=== PATIENT | male | born 1985 | race Caucasian/White ===

== ENCOUNTER → 2024-03-31 10:01 | Outpatient (BNVA) | payer OTHER, SELFPAY | PROVIDERS: PCP Internal Medicine; Visit Provider Physician Assistant Medical | DX: M23.8X2 Other internal derangements of left knee (principal); R60.1 Generalized edema | CPT/HCPCS: 73564; 99203 ==

== ENCOUNTER → 2024-04-10 11:28 | Outpatient (BNVA) | payer OTHER, SELFPAY | PROVIDERS: PCP Internal Medicine; Visit Provider Physician Assistant Medical | DX: M23.92 Unspecified internal derangement of left knee (principal) | CPT/HCPCS: 99213 ==

== ENCOUNTER 2024-04-18 08:46 | Outpatient (REF) | payer OTHER, SELFPAY ==
--- NOTE | ~2024-04-18 | XR_ITS ---
EXAMINATION: XR SKULL, PRE-MRI SCREENING CLINICAL INFORMATION: Pre-MRI screening. BBs. COMPARISON: None. TECHNIQUE: AP and lateral views of the skull were obtained. FINDINGS: Radiopaque metallic densities are seen overlying the right skull apex measuring up to 0.4 and 0.4 cm. No additional radiopaque foreign body. No acute fracture. No concerning lytic or blastic osseous lesion. XR/XR pre mri screening IMPRESSION: Radiopaque metallic densities overlying the right skull apex measuring up to 0.4 cm. Electronically signed by: Gilberto Pastor MD 04/18/2024 10:34 AM EDT
== END 2024-04-18 08:47 | disposition home or self-care (01) ==
LOC: HO.XRAY 08:46
PROVIDERS: PCP Family Medicine; Visit Provider Internal Medicine
DX: Z13.89 Encounter for screening for other disorder (principal)

== ENCOUNTER 2024-04-21 18:57 | Outpatient (REF) | payer OTHER, SELFPAY ==
--- NOTE | ~2024-04-21 | MR_ITS ---
EXAMINATION: MR KNEE WITHOUT CONTRAST, LEFT CLINICAL INFORMATION: Left knee pain and swelling following an injury 3 weeks ago. Reduced range of motion. Internal derangement. COMPARISON: Left knee radiographs dated 03/31/2024. TECHNIQUE: MRI of the knee without contrast was performed using routine sequences on a high-field scanner. FINDINGS: MENISCI: Medial Meniscus: Intact Lateral Meniscus: Oblique inner margin and tibial articular surface tear of the posterior horn and root with extension into the intrasubstance of the meniscal body which is medially extruded. Mild adjacent soft tissue edema. LIGAMENTS: Cruciate: Intact. Collateral: Edema adjacent to the medial collateral ligament which may be related to the meniscal tear or indicate a grade 1 sprain. Intact fibular collateral ligament. EXTENSOR MECHANISM: Intact quadriceps tendon. Minimal proximal patellar tendinosis. Normal patellofemoral alignment. ARTICULAR CARTILAGE/BONE: Patellofemoral Compartment: Medial patellar facet full-thickness articular cartilage fissuring. Medial Compartment: Marrow edema within the medial aspect of the medial femoral condyle and medial tibial plateau consistent with osseous contusions. No fracture. Intact articular cartilage. Lateral Compartment: Intact articular cartilage. JOINT FLUID AND BURSAE: Small joint effusion. MR/MR knee LT wo con IMPRESSION: 1. Oblique inner margin and tibial articular surface tear of the lateral meniscus posterior horn and root with extension into the intrasubstance of the meniscal body which is medially extruded. 2. Edema adjacent to the medial collateral ligament which may be related to the meniscal tear or indicate a grade 1 sprain. 3. Osseous contusions at the medial aspect of the medial femoral condyle and medial tibial plateau without an associated fracture. 4. Minimal proximal patellar tendinosis. 5. Minimal patellofemoral arthrosis. Small joint effusion. Electronically signed by: Gilberto Pastor MD 05/07/2024 11:38 AM [facility] [place]
== END 2024-04-21 18:58 | disposition home or self-care (01) ==
LOC: HO.MRI 18:57
PROVIDERS: PCP Family Medicine; Visit Provider Internal Medicine
DX: M23.92 Unspecified internal derangement of left knee (principal)
CPT/HCPCS: 73721

== ENCOUNTER → 2024-04-24 10:44 | Outpatient (BNVA) | payer OTHER, SELFPAY | PROVIDERS: PCP Family Medicine; Visit Provider Physician Assistant Medical | DX: M23.8X2 Other internal derangements of left knee (principal) | CPT/HCPCS: 99213 ==

== ENCOUNTER → 2024-05-07 09:59 | Outpatient (BNVA) | payer OTHER, SELFPAY | PROVIDERS: PCP Family Medicine; Visit Provider Physician Assistant Medical | DX: M23.8X2 Other internal derangements of left knee (principal) | CPT/HCPCS: 99213 ==

== ENCOUNTER 2025-03-24 11:42 | Emergency (ER) | payer BC, SELFPAY ==
--- NOTE | ~2025-03-24 | XR_ITS ---
EXAMINATION: XR FINGER, LEFT CLINICAL INFORMATION: laceration, 3rd digit, r/o avulsion COMPARISON: None available. TECHNIQUE: PA hand and oblique and lateral views of the left third digit. FINDINGS: Small defect in the soft tissues is noted to the ulnar side of the third digit at the level of the DIP joint. There is also increased since soft tissues with swelling. No fracture is identified. No chronic degenerative changes are seen. XR/XR finger LT min 2V IMPRESSION: Soft tissue injury involving distal third digit. No acute bony abnormality. Electronically signed by: Valdemar Hughes MD 03/24/2025 12:30 PM EDT
[2025-03-24 11:45] VITALS: BP 165/101; PULSE 85; RESP 18; TEMP 36.7; O2SAT 97; BMI 34.3
--- NOTE | 2025-03-24 11:45 | ED.SKABFB ---
HPI - Skin/Abscess/Foreign Bdy General Chief complaint: Wound/Laceration Stated complaint: Finger lac Time Seen by Provider: 03/24/25 12:18 Source: patient, RN notes reviewed and old records reviewed Mode of arrival: ambulatory Limitations: no limitations History of Present Illness ED Provider: Meena HPI narrative: Patient is a 39-year-old right-hand dominant male presenting to the emergency department with complaint of laceration to left middle finger. States he got his finger caught in the bike wheel prior to arrival. Tdap up-to-date, last received in 2019. Denies any other injury. complaint: laceration Related Data Allergies Allergy/AdvReac Type Severity Reaction Status Date / Time Penicillins (PCN) Allergy Anaphylaxis Verified 03/24/25 11:50 Review of Systems Review of Systems: as per hpi Yes all other systems are reviewed and are negative Constitutional: Constitutional: Reports as per HPI [facility] Social History Social History Advance Directives: No Advance Directives Information Provided: Yes Physical Exam Vital Signs: Vital Signs: Last Vital Signs Temp 98.2 F 03/24/25 12:00 Pulse 77 03/24/25 12:00 Resp 16 03/24/25 12:00 BP 140/93 H 03/24/25 12:00 Pulse Ox 99 03/24/25 12:00 O2 Del Method Room Air 03/24/25 12:00 BMI result Body Mass Index 34.3 Vital signs have been reviewed and appear to be correct. Blood pressure normal. Heart rate normal. Respiratory rate normal. Temperature normal. Oxygen saturation normal. Const: General: cooperative, healthy appearing and no acute distress Orientation/consciousness: oriented to person, oriented to place, oriented to time and patient oriented x3 Limitations: no limitations HEENT: Head: Yes normocephalic and Yes atraumatic Ears: external ears normal General nose exam: Normal external nose present Face and sinus: Yes face symmetric Mouth: oropharynx normal and moist mucous membranes Throat: Yes uvula midline Eyes: Pupils: Equal, round and reactive pupils present Neck: Neck: Yes normal visual inspection and Yes supple Resp: Effort & Inspection: normal respiratory effort and able to speak in complete sentences Auscultation: clear to auscultation bilaterally Cardio: Rate: regular rate Rhythm: regular rhythm Heart sounds: S1 normal heart sound present and S2 normal heart sound present GI: Palpation (GI): Soft to palpation and nontender Auscultation: normoactive bowel sounds : General: Yes no CVA tenderness Back/Spine/Pelvis: Back: no CVA tenderness Skin: General skin exam: elasticity normal and turgor normal Neuro: General: oriented to person, oriented to place, oriented to time, patient oriented x3, moves all extremities, no focal motor deficits and CN's II-XI intact bilaterally Cranial nerves: Yes Equal, round and reactive pupils present Cognition (Neuro): normal cognition Extrem: General: Yes full ROM, Yes no pedal edema and Yes no calf tenderness Right upper extremity: Extremity exam: right hand Details: neuromotor exam normal, neurosensory exam normal, normal ROM of fingers and laceration 3rd digit dorsal aspect distal Details: flap (with small laceration to lateral nail not requiring sutures), with motor nerve function intact and with sensation intact Hand/finger images:  1. avulsion/flap to ulnar side of distal left 3rd finger with small lac to lateral nail Psych: Mental Status: mental status grossly normal Affect: normal affect Thought process: Normal thought process present Course Course Course Narrative: This is an RME: Additional HPI, ROS, PE not included below will be deferred to primary provider. RME assessment and note performed by: Florencia Martinez PA-C This is a [id number]-male who presents to the ER with complaints of finger laceration. Patient reports that he accidentally lacerated his left middle finger on a bike wheel. Needs stitches. Last tetanus was 6 years ago. Patient with tenderness palpation along the lateral aspect with 2.5 cm irregularly shaped laceration noted. Plan: X-rays Medications Administered Discontinued Medications Generic Name Dose Route Start Last Admin Trade Name Freq PRN Reason Stop Dose Admin Diphtheria/Tetanus/Acell Pertussis 0.5 ml 03/24/25 12:20 03/24/25 12:32 Diphth,Pertus(Acell),Tet Adult 0.5 Ml Syringe IM 03/24/25 12:21 Not Given .ONCE ONE Medical Decision Making Medical Decision Making [facility] Narrative: Patient is a 39-year-old right-hand dominant male presenting to the emergency department with complaint of laceration to left middle finger. On exam patient is awake, A+Ox3, VS WNL, afebrile, normal neurological exam without focal deficits, physical exam findings as above. Given reported symptoms and physical exam findings, initial differential includes but is not limited to laceration/avulsion, nail laceration, open fracture. X-ray left 3rd finger notable for no evidence of fracture or foreign body. My interpretation is in agreement with the radiologist's interpretation. Laceration repaired as per procedure note. Wound care instructions and return precautions discussed at bedside. Patient verbalized understanding of and agreement with plan. Differential Diagnosis Differential Diagnoses: The differential diagnosis associated with the presentation includes as per mdm Admission/Observation Consideration of admission/observation: Escalation of care including admission/observation considered Patient would have been admitted to the hospital and transferred to appropriate facility had their clinical presentation warranted hospital admission. Independent Interpretation I performed an independent interpretation of an: Plain X-Ray Interpretation: no evidence of fracture or foreign body x-ray left 3rd finger Radiology Impression Discussion of test interpretation with radiology: I have reviewed the radiologist's reading. Radiologist Impression: XR/XR finger LT min 2V IMPRESSION: Soft tissue injury involving distal third digit. No acute bony abnormality. External Record Review External record reviewed: Inpatient record, Office record and Outpatient record Procedures Laceration Laceration 1: Site: hand Side (If applicable): left Size (cm): 2 Description: flap Depth: simple, single layer Local Anesthetic: lidocaine 1% Amount of anesthesia used (mL): 2 Pre-repair: wound explored, irrigated extensively and deep structures intact Skin layer closed with: other (prolene) Size (cm): 5-0 Number of sutures: 7 Technique: simple, interrupted Discharge Plan Discharge Clinical Impression: Laceration of finger of left hand Qualifiers: Encounter type: initial encounter Finger: middle finger Damage to nail status: with damage Foreign body presence: without foreign body Qualified Code(s): S61.313A - Laceration without foreign body of left middle finger with damage to nail, initial encounter Patient Disposition: Home, Self-Care Instructions: Finger Laceration (ED), Stitches Removal (ED), Care For Your Stitches (DC) Additional Instructions: You have been evaluated in the emergency department today for a laceration to your finger. Your laceration was repaired in the emergency department with 7 sutures. Please keep the area surrounding the laceration clean and dry and keep dressing in place for the next 24 hours. After that please change the dressing and assess the wound daily. Do not submerge the wound in water until the stitches has been removed and the wound has fully healed (no washing dishes, swimming, hot tubs, etc. and ESPECIALLY no outdoor water). Keep the area out of direct sunlight for the next 6 months to help prevent scarring. You should have the sutures removed in 7-10 days. If you develop fever, redness, swelling at the site of your laceration, or thick yellow drainage please come back to the ER for a wound check. Stand Alone Forms: Work/School Release Print Language: Macanese
[2025-03-24 12:00] VITALS: BP 140/93; PULSE 77; RESP 16; TEMP 36.8; O2SAT 99
--- OUTSIDE RECORDS SUMMARY | 2025-03-24 13:44 | XMS_ITS | Clinical Summary ---
Author Organization [facility] Address [address] [place] [phone] Phone Care Team Providers Care Social Research Assistant Name Role Phone Bruce Navarrete DO Primary Care Provider [phone] Bruce Navarrete DO Unavailable Bruce Navarrete DO Unavailable Allergies Active Allergy Reactions Criticality Noted Date Comments Penicillin G Potassium Anaphylaxis High 09/28/2016 Medications triamcinolone (NASACORT AQ) 55 mcg/actuation nasal inhaler 1 puff in each nostril Active levocetirizine (XYZAL) 5 MG tabletIndications: Daily as needed. Take 5 mg by mouth as needed for allergies. Indications: Daily as needed. Active inhaler spacing device (AEROCHAMBER,BREAT HERITE) SpcrIndications:Vi ral URI with cough Inhale 1 each into the lungs daily. 1 each 0 Active budesonide (PULMICORT FLEXHALER) 90 mcg/actuation inhalerIndications :Reactive airway disease without complication, unspecified asthma severity, unspecified whether persistent Inhale 2 puffs into the lungs 2 (two) times a day. 1 Inhaler 5 0 Active methylphenidate HCl 27 MG CR tablet Take 1 tablet (27 mg total) by mouth every morning. 30 tablet 2 Active methylphenidate HCl 27 MG CR tablet Take 1 tablet (27 mg total) by mouth every morning. 30 tablet 2 Active sildenafiL (VIAGRA) 100 mg tabletIndications: Corporo-venous occlusive erectile dysfunction Take 1 tablet (100 mg total) by mouth daily as needed. 10 tablet 5 2 Active doxycycline monohydrate (MONODOX) 100 MG capsule Take 1 capsule (100 mg total) by mouth daily. For 14 days 14 capsule 3 Active doxycycline hyclate 20 MG tablet Take 40 mg by mouth daily. 4 Active azithromycin (ZITHROMAX) 250 MG tabletIndications: Chronic maxillary sinusitis Take 2 tablets on day 1 followed by 1 tablet daily for 4 days 6 tablet 4 Active albuterol 90 mcg/actuation inhalerIndications :Viral URI with cough Use 2 puff 3 times per day for 3-5 days and then 2 times per day as needed for tightness and cough 18 g 2 4 Active meclizine (ANTIVERT) 12.5 mg tablet Take 1 tablet (12.5 mg total) by mouth 3 (three) times a day as needed for dizziness or nausea. 30 tablet 5 Active ondansetron (ZOFRAN-ODT) 4 MG disintegrating tablet Take 1 tablet (4 mg total) by mouth every 8 (eight) hours as needed for nausea. 15 tablet 5 Active methylphenidate HCl 27 MG ER tabletIndications: Lack of concentration Take 1 tablet (27 mg total) by mouth every morning. 30 tablet 5 Active doxycycline hyclate 20 MG tabletIndications: Other acne TAKE 1 TABLET BY MOUTH TWICE A DAY 180 tablet 1 5 Active Active Problems Problem Noted Date Diagnosed Date Lump in neck 02/14/2024 Assessment & Plan (02/14/2024 11:02 AM EDT): Grabiel presents with a lump-right side of neck. This is painful when he turns his neck to the left and swallows. This may be a reactive lymph node but I will further investigate with blood work-he is due for routine labs from last physical and a CBC was included. I will update him with the result. I also ordered an ultrasound of this area to further investigate this. Follow-up in a month. I placed a referral to ENT today just so that there is not a delay if this is needed down the road. I informed him to call if his symptoms change or if he gets a fever or if there are any other issues or concerns. He understands and agrees. Chronic maxillary sinusitis 10/09/2023 Assessment & Plan (10/09/2023 1:49 PM EDT): Grabiel presents for an ongoing sinusitis-I change his antibiotics over to Z-Abdoul as he notes the doxycycline was not helping him. He has 1 day left and I advised him to stop this and change of the Z-Abdoul. I informed him to call if there are any other issues or concerns. He understands and agrees. Chronic cough 10/09/2023 Assessment & Plan (10/09/2023 1:50 PM EDT): Grabiel has a chronic cough-I ordered an x-ray of his chest for further evaluation. I will update him with results. He is asked for referral to pulmonology-I did this. He is a law office assistant. I informed him to call if there are any other issues or concerns. Elevated cholesterol 09/29/2022 Assessment & Plan (09/29/2022 2:41 PM EDT): Grabiel presents for a follow-up regarding his blood work. His cholesterol is elevated and I recommended atorvastatin 10 mg once a day-side effects discussed. He notes that he would like to try to improve his diet and exercise and repeat the labs in 3 months and I will update him with results. If they remain elevated then I will start him on atorvastatin 10 mg once a day. He understands and agrees with this plan. Other acne 09/21/2022 Assessment & Plan (09/21/2022 12:12 PM EDT): Grabiel presents with ongoing facial acne and I wrote a prescription for doxycycline to be taken once a day for 2 weeks and to stop-guidance given regarding sun sensitivity to the skin with this medication. I also wrote a prescription for clindamycin lotion to be applied twice a day to the facial region and to call if this does not improve or if things get worse. He notes that he would not like to see dermatology again as they have not been too helpful for him in the past. He will call if there are any other issues or concerns. He understands and agrees. Mixed hyperlipidemia 09/21/2022 Assessment & Plan (10/09/2023 1:50 PM EDT): Grabiel is due for a cholesterol recheck-I ordered this today and he will get this done-fasting for 10 hours prior to. Corporo-venous occlusive erectile dysfunction Assessment & Plan (09/20/2021 11:58 AM EDT): Grabiel has ED and I started him on Viagra - to be taken as directed. Side effects discussed. He will call if there are any other issues. Other headache syndrome 09/15/2020 Assessment & Plan (09/15/2020 11:55 AM EDT): Grabiel has headaches, this is likely stress related. I gave him guidance regarding healthy stress outlets. He declined a medication offered today- Fioricet. He will call if there is any other issues. He understand and agrees. Rash and other nonspecific skin eruption 021 Assessment & Plan (09/15/2020 11:58 AM EDT): Grabiel has a rash on the left side of his face- I started him on the above cream. He will call the derm referral that I sent today if this does not help in 2 weeks. Lack of concentration 07/05/2020 Assessment & Plan (07/05/2020 10:17 AM EST): A virtual visit was used during the COVID-[address] of an in-person visit. This real-time, interactive virtual clinical encounter was conducted using videoconferencing technology from clinic or home office. The patient participated in the visit from home/temporary residence or other location as specified below. Consent for virtual care, including informing the patient that insurance will be billed, and that in-person care is available in case of emergencies or as needed otherwise, was discussed at the time of scheduling. Pt participated in visit from home. Grabiel has been having issues with concentration. He was on Ritalin as a child and believes that he was taken off since around age 14 or so. He is currently having issues with concentration and focus at home. He would like to try something for this. I did advise him to start on high dose of omega-3 to see if this helps and I also put a referral into Dr. Stone for consult regarding ADHD medication. Once stabilized on medication I will manage him as outpatient. We did discuss a controlled substance agreement form in the future and the need for visits every 3 months if he is to be on a controlled medication and he was agreeable to all this. He will call if there is any other issues. He understands and agrees. Vasectomy evaluation 02/27/2020 Assessment & Plan (02/27/2020 9:38 AM EDT): A virtual visit was used during the COVID-[address] of an in-person visit. This real-time, interactive virtual clinical encounter was conducted using videoconferencing technology from clinic or home office. The patient participated in the visit from home/temporary residence or other location as specified below. Consent for virtual care, including informing the patient that insurance will be billed, and that in-person care is available in case of emergencies or as needed otherwise, was discussed at the time of scheduling. Pt participated in visit from home. Brain is asking for vasectomy referral. I referred him to urology today. He and his are both in agreement that 2 children are enough for them. He will call for this referral and I gave him the phone number to make the appointment. I also asked him to call my office later on to schedule a physical in the next few months. He will call if there is any other issues. He understands and agrees. Infection of left eye 11/19/2018 Assessment & Plan (11/19/2018 8:36 AM EDT): Grabiel has an infection of his left lower eye lid-not a sty. I advised him to start on the above eye drops as directed. He will also make an appt with his eye doctor for later this week and go if this is not getting better. I advised that he also continue with the warm compresses. He will call me if there is any other issues. He understands and agrees. Routine medical exam 09/07/2017 Assessment & Plan (10/09/2023 1:51 PM EDT): Grabiel Johnson is a 37 y.o. year old male presenting for his annual physical exam. I reviewed the adult health update-electronic questionnaire. he will go for his above lab work and I will update him with the results. I advised him to continue to improve his diet and exercise regimen. he will follow up in a year for their annual physical exam. he understands and agrees. Assessment & Plan (09/21/2022 12:03 PM EDT): Grabiel Johnson is a 36 y.o. year old male presenting for his annual physical exam. I reviewed the adult health update-electronic questionnaire. he will go for his above lab work and I will update him with the results. he has a healthy diet and exercise regimen. he will follow up in a year for their annual physical exam. he understands and agrees. Assessment & Plan (09/20/2021 11:48 AM EDT): Grabiel Johnson is a 35 y.o. year old male presenting for his annual physical exam. I reviewed the adult health update questionnaire. he will go for his above lab work and I will update him with the results. he has a healthy diet and exercise regimen. he will follow up in a year for their annual physical exam. he understand and agrees. Assessment & Plan (09/15/2020 12:09 PM EDT): Grabiel Johnson is a 34 y.o. year old male presenting for his annual physical exam. I reviewed the adult health update form today. he will go for his above lab work and I will update him with the results. I advised him to improve his diet and exercise regimen. he will follow up in a year for their annual physical exam. he understand and agrees. Assessment & Plan (09/07/2017 12:43 PM EDT): Grabiel Johnson is a 31 y.o. year old male presenting for his annual physical exam. I reviewed the supplied law office assistant forms today in the office. I reviewed the adult health update form today. he will go for his above lab work and I will update him with the results. he has a healthy diet and exercise regimen. he will follow up in a year for their annual physical exam. he understand and agrees. Anxiety 09/07/2017 Assessment & Plan (09/20/2021 11:55 AM EDT): He is looking for coping mechanisms. Guidance given to start on exercise to help with this. Palpitations 09/07/2017 Assessment & Plan (09/07/2017 12:41 PM EDT): Grabiel has palpitations still but he was seen by his floor plan adjuster and he was diagnosed with PVC's, but not concerning at this time. He will call if these get worse though. Grabiel had an EKG today in the office and this was WNL and stable. Seasonal allergies 09/07/2017 Assessment & Plan (09/15/2020 12:08 PM EDT): I referred Grabiel to allergy testing. He was appreciative of this. Assessment & Plan (09/07/2017 11:35 AM EDT): Grabiel has seasonal allergies and this is getting worse. He is taking his medication as directed and he was also referred to an guidance and control system engineer today. He was appreciative of this. Class 1 obesity due to exces s calories without serious comorbidity with body mass index (BMI) of 33.0 to 33.9 in adult 09/07/2017 Assessment & Plan (10/09/2023 1:50 PM EDT): BMI of 33-guidance given regarding improving lifestyle-he is currently improving his diet and getting more exercise more recently-I congratulated him on this. Assessment & Plan (09/20/2021 11:49 AM EDT): Grabiel has a BMI of 34. I gave him guidance regarding improving diet and exercise regimen. Assessment & Plan (09/15/2020 11:52 AM EDT): Grabiel is overweight and I advised him to improve his diet and exercise regimen. Assessment & Plan (09/07/2017 12:41 PM EDT): Grabiel is overweight and he was advised to improve his diet and exercise regimen. He understands and agrees to this. Resolved Problems Problem Noted Date Diagnosed Date Resolved Date Reactive airway disease 09/07/201708/23 Encounters Date Type Department Care Team Description 01/23/2025 Refill [facility] [address] [place] [address] Bruce Navarrete, DO Medication Refill from Last 3 Months Immunizations Immunization Administration Dates Next Due COVID-19 (Pre-04/16) Pfizer Vaccine, mRNA, PF ,06/24/2020 INFLUENZA, SPLIT VIRUS, TRIVALENT PF 03/29/2015 Influenza Quadrivalent Preservative Free IM 04/25 Influenza Recombinant [place] valent Preservative Free IM 07/05/2019 Tdap 01/19/2020,09/21/2015 Family History Medical History Relation Comments Atrial fibrillation Father CV disease Father Hypertension Mother CV disease Paternal Grandmother Relation Status Comments Father Alive Mother Alive Paternal Grandmother Social History Tobacco Use Types Packs/Day Years Used Date Smoking Tobacco: Never Smokeless Tobacco: Former Tobacco Cessation:Counseling Given: Not Answered Alcohol Use Standard Drinks/Week Comments Yes 0 (1 standard drink = 0.6 oz pur e alcohol) less then 1 a month. Child or Family Care Answer Date Record ed Do you have problems with on e of the following making it difficult for you to work, study, or receive health care? No 10/09/2023 Education Answer Date Recorded Are you interested in help w ith more adult education (for example, completing high school, GED, job training, learning the [place] language, technical skills, or developing parenting skills)? No 10/09/2023 Are you concerned about learning? Not on file 10/09/2023 No 10/09/2023 Yes 10/09/2023 Food Answer Date Recorded Within the past 6 months we worried whether our food would run out before we got money to buy more. Never True 10/09/2023 Within the past 6 months the food we bought just didn't last and we didn't have enough money to get more. Never True Residential Stability Answer Date Recor ded What is your housing situation today? I have cam márquez 10/09/2023 How many times have you move d in the past 12 months? Zero (I did not move) 10/09/2023 Paying for Meds Answer Date Recorded Do you have trouble paying for medicines? No 10/09/2023 Paying Utility Bills Answer Date Record ed Do you have trouble paying your heating or elect ricity bill? No 10/09/2023 Transportation Answer Date Recorded Has the lack of transportati on kept you from medical appointments or from getting medications? No 10/09/2023 Unemployment Answer Date Recorded Are you currently unemployed or working on a part-time or temporary basis, and looking for work? No 10/09/2023 Digital Access Answer Date Recorded No 10/09/2023 Yes 10/09/2023 Do you have reliable internet access at home? Ye s 10/09/2023 Do you have a device (e.g., phone, tablet, computer) with a working camera? Yes 10/09/2023 Intimate Partner Violence Answer Date R ecorded Denied Basic Needs Not on file 10/09/2023 In the past 12 months have y ou been in a relationship with a person who hurts, threatens, or tries to control you? No 10/09/2023 Worried food would run out Not on file 10/08 In the past 12 months have y ou been in a relationship with a person who hurts, threatens, or tries to control you? 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 Not on file Not on file Not on file Last Filed Vital Signs Vital Sign Reading Time Taken Comments Blood Pressure 118/76 08/15/2024 10:46 AM EST Pulse 66 08/15/2024 10:46 AM EST Temperature 36.8 C (98.3 F) 02/14/2024 10:29 AM EDT Respiratory Rate - - Oxygen Saturation 99% 08/15/2024 10: 46 AM EST Inhaled Oxygen Concentration - - Weight 106.6 kg (235 lb 0.2 oz) 025 10:46 AM EST Height 174.6 cm (5' 8.74 ) 08/15/2024 1 0:46 AM EST Body Mass Index 34.97 08/15/2024 10:46 AM EST Plan of Treatment Health Maintenance Due Date Last Done Comments CREATININE LEVEL 08/16/2024 02/14/2024, , 09/20/2021, Additional history exists POTASSIUM LEVEL 08/16/2024 02/14/2024, 08/25, 09/20/2021, Additional history exists DEPRESSION SCREENING 10/08/2024 10/09/2023 INFLUENZA VACCINE (#1) 2025 , 07/05/2019, 03/29/2015 LIPID PANEL 02/13/2025 02/14/2024, 08/25, 09/21/2022, Additional history exists COVID-19 VACCINE ( season) 2025 06/21/2021, 07/15/2020, 06/24/2020, Additional history exists SCREENING FOR DIABETES 02/13/2027 02/14/2024 Adult Td,Tdap Booster 01/18/2030 01/19/2020, 016 HEPATITIS C SCREENING Completed 09/15/2020, 021 HIV ONE-TIME SCREENING (18-65 YEARS) Completed 09/15/2020 SMOKING STATUS SCREENING (Once After 26 Yrs) Completed 08/15/2024 HEPATITIS A VACCINES Aged Out No long er eligible based on patient's age to complete this topic HIB VACCINES Aged Out No longer eligi ble based on patient's age to complete this topic MENINGOCOCCAL VACCINES (ACWY) Aged Out No longer eligible based on patient's age to complete this topic MENINGOCOCCAL VACCINES (B) Aged Out N o longer eligible based on patient's age to complete this topic PNEUMOCOCCAL VACCINES (0-49 years) Aged Out No longer eligible based on patient's age to complete this topic Medical Devices Not on file Procedures Procedure Name Priority Date/Time Associated Diagnosis Comments LIPID PANEL Routine 02/14/2024 11:07 AM EDT Mixed hyperlipidemia COMPREHENSIVE METABOLIC PANEL Routine 02/14/2024 11:07 AM EDT Routine medical exam HEPATITIS C ANTIBODY, QUALITATIVE Routine 09/15/2020 12:12 PM EDT Routine medical exam from Last 3 Months or Most Recently Relevant to Health Maintenance Results * Comprehensive metabolic panel (02/14/2024 11:07 AM EDT) SODIUM 140 133 - 146 mmol/L [facility] POTASSIUM 4.2 3.3 - 5.1 mmol/L [facility] CHLORIDE 106 96 - 108 mmol/L [facility] CO2 25 21 - 35 mmol/L [facility] BUN 11 6 - 19 mg/dL [facility] CREATININE 1.00 0.5 - 1.5 mg/dL [facility] GLUCOSE 92 70 - 99 mg/dL [facility] ALBUMIN 4.2 3.9 - 4.8 g/dL [facility] TOTAL PROTEIN 7.2 6.5 - 8.0 g/dL [facility] CALCIUM 8.9 8.4 - 10.3 mg/dL [facility] ALKALINE PHOSPHATASE 61 39 - 117 U/L [facility] TOTAL BILIRUBIN 0.3 0.0 - 1.2 mg/dL [facility] AST 34 0 - 37 U/L [facility] ALT 34 0 - 40 U/L [facility] GLOBULIN 3.0 1 - 4.8 g/dL [facility] EGFR 98 >59 mL/min/1.7 3m2 [facility] Comment:Estimated glomerular filtration rate calculated using the CKD-EPI refit equation. ANION GAP 13 10 - 20 mmol/L [facility] Blood 02/14/2024 11:0 7 AM EDT 02/14/2024 11:11 AM EDT us Bruce Navarrete DO LAB BLOOD ORDERABLES Final Resul t [facility] [address] [place] [address] * Lipid panel (02/14/2024 11:07 AM EDT) HDL 39 mg/dL [facility] Comment: Interpretation <40 mg/dL: Low HDL cholesterol (major risk factor for CHD) Greater than or equal to 60 mg/dL: High HDL cholesterol ( negative risk factor for CHD) HDL - cholesterol is affected by a number of factors, e.g. smoking, excerise, hormones, sex and age. CHOLESTEROL 191 0 - 240 mg/dL [facility] TRIGLYCERIDES 118 30 - 160 mg/dL [facility] LDL 128 50 - 129 mg/dL [facility] Comment: LDL levels in terms of risk for coronary heart disease: <100 mg/dL: Optimal 100-129 mg/dL: Near or above optimal 130-159 mg/dL: Borderline high 160-189 mg/dL: High >190 mg/dL: Very High CARDIAC RISK RATIO 4.9 3.4 - 5.0 C [facility] Blood 02/14/2024 11:0 7 AM EDT 02/14/2024 11:10 AM EDT Bruce Navarrete DO LAB BLOOD ORDERABLES Final Resul t Performing Organization Address [facility]/ZIP Co de Phone Number [address] [address] * Hepatitis C antibody, qualitative (09/15/2020 12:12 PM EDT) HCV NON-REACTIV E NON-REACTI VE [facility] Blood 09/15/2020 12:1 2 PM EDT 09/15/2020 12:24 PM EDT Bruce Navarrete DO LAB BLOOD ORDERABLES Final Resul t Performing Organization Address [facility] Co de Phone Number [address] [address] from Last 3 Months or Most Recently Relevant to Health Maintenance Insurance [facility] Care Teams Social Research Assistant Relationship Specialty Start Date End Date Bruce Navarrete DO [address], [address] [place] [address] [email or web address] PCP - General 04/09/17 Bruce Navarrete DO [address], [address] [place] [address] Historical LMR Provider 04/12/17 Bruce Navarrete DO [address] [place] [address], [address] [place] [address] [email or web address] Insurance Assigned Provider 09/29/23 Additional Source Comments The information contained in this document represents components of the legal health record. It is not the complete legal health record.[facility]
[2025-03-24 13:46] VITALS: BP 140/93; PULSE 77; RESP 16; TEMP 36.8; O2SAT 99
[2025-03-24] MEDS: Lidocaine HCl 1 % MPF 5 ML VIAL INFILTRATI (13:46)
== END 2025-03-24 13:46 | disposition home or self-care (01) ==
PROVIDERS: Emergency Provider Emergency Medicine; PCP Family Medicine
DX: S61.213A Laceration without foreign body of left middle finger without damage to nail, initial encounter (principal); W45.8XXA Other foreign body or object entering through skin, initial encounter; Y93.9 Activity, unspecified; Y92.9 Unspecified place or not applicable
CPT/HCPCS: 12001; 73140; 90471; 99283; 99284; J2003

== ENCOUNTER → 2025-03-24 11:51 | Outpatient (BNV) | payer BC, SELFPAY | PROVIDERS: Emergency Provider Emergency Medicine; PCP Family Medicine; Visit Provider Radiology Diagnostic Radiology | DX: S61.313A Laceration without foreign body of left middle finger with damage to nail, initial encounter (principal) | CPT/HCPCS: 73140 ==